=== PATIENT | male | born 1985 | race Hispanic/Latino ===

== ENCOUNTER 2020-11-25 17:17 | Emergency (ER) | payer SELFPAY ==
[2020-11-25] MEDS ORDERED: LIDOCAINE 1% W/EPI 1:100,000 MDV 20 ML VIAL ONE (22:01)
[2020-11-25] MEDS ORDERED: TETANUS & DIPHTHERIA TOX,ADULT 0.5 ML VIAL ONE (22:02)
--- NOTE | 2020-11-25 22:17 | RAD REPORT ---
EXAM DESCRIPTION: RAD - Forearm Left - 11/25/2020 10:10 pm CLINICAL HISTORY: laceration COMPARISON: No comparisons FINDINGS: No fracture, dislocation or radiopaque foreign body.
--- NOTE | 2020-11-25 22:30 | ER ---
Nurse's Notes [facility] Name: William Crabtree Age: 35 yrs Sex: Male : 1985 Arrival Date: 11/25/2020 Time: 17:20 Bed Treatment Private MD: Diagnosis: Laceration without foreign body of left forearm Presentation: 11/25 17:36 Chief complaint: Patient states: Accidentally cut L arm with knife at home 1.5 hours ll1 [employer]. Bleeding controlled with dressing. PMS intact. Coronavirus screen: Client denies travel out of the [place] in the last 14 days. At this time, the client does not indicate any symptoms associated with coronavirus-19. Ebola Screen: Patient denies travel to an Ebola-affected area in the 21 days before illness onset. Complicating Factors: There are no complicating factors for this patient. Initial Sepsis Screen: Does the patient meet any 2 criteria? HR > 90 bpm. No. Patient's initial sepsis screen is negative. Does the patient have a suspected source of infection? Yes: Skin breakdown/wound. Risk Assessment: Do you want to hurt yourself or someone else? Patient reports no desire to harm self or others. Onset of symptoms was November 25, 2020. 17:36 Method Of Arrival: Ambulatory ll1 17:36 Acuity: ANTONINO 3 ll1 Historical: - Allergies: 17:37 No Known Allergies; ll1 - PMHx: 17:37 None; ll1 - PSHx: 17:37 None; ll1 - Immunization history:: Client reports having NOT received the Covid vaccine. Last tetanus immunization: unknown. - Social history:: Smoking status: Patient denies any tobacco usage or history of. Screenin:51 Abuse screen: Denies threats or abuse. Nutritional screening: No deficits noted. vg1 Tuberculosis screening: No symptoms or risk factors identified. Fall Risk None identified. Assessment: 21:49 General: Appears in no apparent distress. comfortable, Behavior is calm, cooperative. vg1 Pain: Complains of pain in palmar aspect of left forearm Pain currently is 4 out of 10 on a pain scale. Pain began around 1500. Neuro: Level of Consciousness is awake, alert, obeys commands, Oriented to person, place, time, situation. Cardiovascular: Capillary refill < 3 seconds in bilateral fingers. Respiratory: Airway is patent Respiratory effort is even, unlabored. GI: No signs and/or symptoms were reported involving the gastrointestinal system. : No signs and/or symptoms were reported regarding the genitourinary system. EENT: No signs and/or symptoms were reported regarding the EENT system. Derm: Skin is pink, warm \T\ dry. Musculoskeletal: Circulation, motion, and sensation intact. Injury Description: Laceration sustained to palmar aspect of left forearm is jagged, not bleeding. 23:08 Reassessment: Patient and/or family updated on plan of care and expected duration. Pain ea level reassessed. Patient is alert, oriented x 3, equal unlabored respirations, skin warm/dry/pink. Discharge instruction given to patient verbalized the understanding of instruction. Pt left ED ambulatory tolerating well. Vital Signs: 17:36 BP 141 / 94; Pulse 93; Resp 17; Temp 98.4; Pulse Ox 100% ; Weight 81.65 kg; Height 5 ll1 ft. 7 in. (170.18 cm); Pain 10/10; 17:36 Body Mass Index 28.19 (81.65 kg, 170.18 cm) ll1 ED Course: 17:20 Patient arrived in ED. ds1 17:35 Arm band placed on. ll1 17:37 Triage completed. ll1 21:12 Thang Lorenzo PA is PHCP. cp 21:12 Jules Amaya MD is Attending Physician. cp 21:34 Louise Guerin RN is Primary Nurse. vg1 21:51 Patient has correct armband on for positive identification. Bed in low position. Call vg1 light in reach. 22:10 XRAY Forearm LEFT In Process Unspecified. EDMS 22:12 Report given to Lanny SHAH. vg1 23:09 Assist provider with laceration repair on palmar aspect of left forearm that was 2.5 ea cm. or less using sutures. Set up tray. Performed by Thang MARQUES Dressed with Neosporin, Patient tolerated well. Patient did not have IV access during this emergency room visit. 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 Exp: vg1 06/06/2022. Lot #: [id number]. } Route: IM; Site: right deltoid; 23:09 Follow up: Response: No adverse reaction ea 22:30 Drug: Lidocaine-Epinephrine -1%: (1:100,000) 10 ml Volume: 20 ml; Route: Infiltration; ea 23:10 Follow up: Response: No adverse reaction ea Outcome: 22:29 Discharge ordered by . julio 23:09 Discharged to home ambulatory, with family. ea 23:09 Condition: stable 23:09 Discharge instructions given to patient, Instructed on discharge instructions, follow up and referral plans. Demonstrated understanding of instructions, follow-up care. 23:10 Patient left the ED. ea Signatures: Dispatcher [employer] EDNY SchultzSaima ds1 Thang Lorenzo PA PA cp Antunez, Elena, RN RN ea Garcia, Victoria RN RN vg1 Hanna Aguilar RN RN ll1
--- NOTE | 2020-11-25 22:30 | EDPHYS ---
Physician Documentation [facility] Name: William Crabtree Age: 35 yrs Sex: Male : 1985 Arrival Date: 11/25/2020 Time: 17:20 Bed Treatment Private MD: ED Physician Jules Amaya HPI: 11/25 21:30 This 35 yrs old Male presents to ER via Ambulatory with complaints of cp Laceration To Arm. 21:30 The patient has a laceration occurred at home, The injury was accidental. cp 21:30 The laceration(s) is(are) located on the volar side left forearm. Onset: The cp symptoms/episode began/occurred just prior to arrival. Associated signs and symptoms: Pertinent negatives: heavy bleeding, numbness distal to injury. Historical: - Allergies: 17:37 No Known Allergies; ll1 - PMHx: 17:37 None; ll1 - PSHx: 17:37 None; ll1 - Immunization history:: Client reports having NOT received the Covid vaccine. Last tetanus immunization: unknown. - Social history:: Smoking status: Patient denies any tobacco usage or history of. ROS: 21:35 Skin: Positive for laceration(s), of the volar aspect of left forearm. cp 21:35 Constitutional: Negative for fever. cp 21:35 Neuro: Negative for dizziness, numbness, tingling, weakness. 21:35 All other systems are negative. Exam: 21:40 Constitutional: The patient appears in no acute distress, alert, awake, well developed, cp well nourished. 21:40 Musculoskeletal/extremity: ROM: full active range of motion, in the left hand, cp Perfusion: the extremity is normally perfused throughout, Sensation intact. 21:40 Skin: injury, laceration(s), the wound is approximately 4 cm(s), of the volar aspect of left forearm, that can be described as clean, no foreign body, linear, with mild bleeding. Vital Signs: 17:36 BP 141 / 94; Pulse 93; Resp 17; Temp 98.4; Pulse Ox 100% ; Weight 81.65 kg; Height 5 ll1 ft. 7 in. (170.18 cm); Pain 10/10; 17:36 Body Mass Index 28.19 (81.65 kg, 170.18 cm) ll1 Laceration: 22:27 Wound Repair of 4cm ( 1.6in ) subcutaneous laceration to volar surface of left forearm. cp Linear shaped.. Distal neuro/vascular/tendon intact. Anesthesia: Wound infiltrated with 8 mls of 1% lidocaine w/ Epi. Wound prep: Moderate cleansing by me, Wound irrigation by me. Skin closed with 6 4-0 Prolene using simple sutures and sterile technique. Dressed with 4x4's. Patient tolerated well. MDM: 21:29 Patient medically screened. cp 22:00 Differential diagnosis: superficial laceration, tendon injury, vascular injury, open cp fracture. 22:28 Data reviewed: vital signs, nurses notes, radiologic studies, plain films. cp 22:28 Test interpretation: by ED physician or midlevel provider: plain radiologic studies. cp Counseling: I had a detailed discussion with the patient and/or guardian regarding: the historical points, exam findings, and any diagnostic results supporting the discharge/admit diagnosis, radiology results, to return to the emergency department if symptoms worsen or persist or if there are any questions or concerns that arise at home. Response to treatment: the patient's symptoms have markedly improved after treatment, and as a result, I will discharge patient. 11/25 21:25 Order name: XRAY Forearm LEFT; Complete Time: 22:27 cp 11/25 22:27 Interpretation: Report reviewed. 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 Exp: vg1 06/06/2022. Lot #: [id number]. } Route: IM; Site: right deltoid; 23:09 Follow up: Response: No adverse reaction ea 22:30 Drug: Lidocaine-Epinephrine -1%: (1:100,000) 10 ml Volume: 20 ml; Route: Infiltration; ea 23:10 Follow up: Response: No adverse reaction ea Disposition: 22:30 Chart complete. cp 23:53 Co-signature as Attending Physician, Jules Amaya MD. pkl Disposition Summary: 11/25/20 22:29 Discharge Ordered Location: Home cp Problem: new cp Symptoms: have improved cp Condition: Stable cp Diagnosis - Laceration without foreign body of left forearm cp Followup: cp - With: Private Physician - When: 10 - 14 days - Reason: Staple/Suture removal Discharge Instructions: - Discharge Summary Sheet cp - Laceration Care, Adult cp Forms: - Medication Reconciliation Form cp - Thank You Letter cp - Antibiotic Education cp - Prescription Opioid Use cp Signatures: Dispatcher [employer] EDJules Gallegos MD MD pkl Page, Corey, PA PA cp Antunez, Elena, RN Louise Landin ea RN RN vg1 Hanna Aguilar RN RN ll1
== END 2020-11-25 23:10 | disposition home or self-care (01) ==
LOC: ER 17:17
PROC: 0JQH0ZZ Repair Left Lower Arm Subcutaneous Tissue and Fascia, Open Approach (ICD-10-PCS; principal; 2020-11-25)
DX: S51.812A Laceration without foreign body of left forearm, initial encounter (principal); W26.0XXA Contact with knife, initial encounter; Y92.009 Unspecified place in unspecified non-institutional (private) residence as the place of occurrence of the external cause; Z23 Encounter for immunization
CPT/HCPCS: 90471; 90714; 99283